=== PATIENT | female | born 1955 | race Caucasian/White ===

== ENCOUNTER 2020-09-22 10:32 | Outpatient (REF) | payer MEDICARE, MEDICAID, OTHER, SELFPAY ==
--- NOTE | ~2020-09-22 | MM_ITS ---
EXAMINATION: MM SCREENING DIGITAL BREAST TOMOSYNTHESIS, BILATERAL CLINICAL INFORMATION: Screening. Asymptomatic. The lifetime risk of breast cancer based on the Tyrer-Cuzick Model is 5%. COMPARISON: Mammography: 01/30/2018 09/23/2016, 09/06/2013 TECHNIQUE: Digital breast tomosynthesis is performed in both the craniocaudal and mediolateral oblique views along with computer-aided detection (CAD). Synthesized 2D images are generated from the tomosynthesis. FINDINGS: The breasts are almost entirely fatty (ACR BI-RADS breast composition Category a). There are no significant masses, abnormal calcifications, or other abnormalities. Background stromal densities are stable. The axilla and skin contours are unremarkable. MM/MM tomosynthesis screening BI IMPRESSION: No mammographic evidence of malignancy. ASSESSMENT: BI-RADS 1: Negative RECOMMENDATION: Routine annual mammography screening. This patient's information was entered into a reminder system with a target due date for their next mammogram.
== END 2020-09-22 10:33 | disposition home or self-care (01) ==
LOC: HO.MAMMO 10:32
PROVIDERS: PCP Internal Medicine; Visit Provider Internal Medicine
DX: Z12.31 Encounter for screening mammogram for malignant neoplasm of breast (principal)
CPT/HCPCS: 77063; 77067

== ENCOUNTER → 2020-12-04 10:45 | Outpatient (BNVA) | payer MEDICARE, MEDICAID, OTHER, SELFPAY | PROVIDERS: PCP Internal Medicine; Visit Provider Internal Medicine | DX: J44.9 Chronic obstructive pulmonary disease, unspecified (principal); G47.30 Sleep apnea, unspecified; J30.9 Allergic rhinitis, unspecified; F17.200 Nicotine dependence, unspecified, uncomplicated | CPT/HCPCS: 99212 ==

== ENCOUNTER → 2020-12-25 09:25 | Outpatient (REF) | payer MEDICARE, MEDICAID, OTHER, SELFPAY | LOC: HO.SL 09:25 | PROVIDERS: Visit Provider Internal Medicine | DX: G47.33 Obstructive sleep apnea (adult) (pediatric) (principal); R06.83 Snoring | CPT/HCPCS: 95806 ==

== ENCOUNTER → 2021-08-04 13:03 | Outpatient (BNVA) | payer MEDICARE, MEDICAID, SELFPAY | PROVIDERS: PCP Internal Medicine; Visit Provider Internal Medicine | DX: G47.33 Obstructive sleep apnea (adult) (pediatric) (principal); J44.9 Chronic obstructive pulmonary disease, unspecified; J30.9 Allergic rhinitis, unspecified; G47.30 Sleep apnea, unspecified; F17.210 Nicotine dependence, cigarettes, uncomplicated | CPT/HCPCS: 99212 ==

== ENCOUNTER → 2021-09-16 16:08 | Outpatient (BNVA) | payer MEDICARE, MEDICAID, SELFPAY | PROVIDERS: PCP Internal Medicine; Visit Provider Internal Medicine | DX: J30.9 Allergic rhinitis, unspecified (principal); J44.9 Chronic obstructive pulmonary disease, unspecified; G47.33 Obstructive sleep apnea (adult) (pediatric); G47.34 Idiopathic sleep related nonobstructive alveolar hypoventilation; F17.200 Nicotine dependence, unspecified, uncomplicated | CPT/HCPCS: 99212 ==

== ENCOUNTER 2021-12-17 09:35 | Outpatient (REF) | payer MEDICARE, MEDICAID, SELFPAY ==
--- NOTE | ~2021-12-17 | MM_ITS ---
EXAMINATION: MM SCREENING DIGITAL BREAST TOMOSYNTHESIS, BILATERAL CLINICAL INFORMATION: Screening. Asymptomatic. The lifetime risk of breast cancer based on the Tyrer-Cuzick Model is 4%. COMPARISON: Mammography: 09/22/2020, 01/30/2018, 09/23/2016 TECHNIQUE: Digital breast tomosynthesis is performed in both the craniocaudal and mediolateral oblique views along with computer-aided detection (CAD). Synthesized 2D images are generated from the tomosynthesis. FINDINGS: The breasts are almost entirely fatty (ACR BI-RADS breast composition Category a). Background stromal markings appearing normal. No developing density or architectural abnormality. There are no significant masses, abnormal calcifications, or other abnormalities. The axilla and skin contours are unremarkable. No significant changes. MM/MM tomosynthesis screening BI IMPRESSION: No mammographic evidence of malignancy. ASSESSMENT: BI-RADS 1: Negative RECOMMENDATION: Routine annual mammography screening. This patient's information was entered into a reminder system with a target due date for their next mammogram.
== END 2021-12-17 09:36 | disposition home or self-care (01) ==
LOC: HO.MAMMO 09:35
PROVIDERS: Visit Provider Internal Medicine
DX: Z12.31 Encounter for screening mammogram for malignant neoplasm of breast (principal)
CPT/HCPCS: 77063; 77067

== ENCOUNTER 2022-06-25 10:49 | Outpatient (REF) | payer MEDICARE, MEDICAID, SELFPAY ==
[2022-06-25 14:01] LABS: Alanine Aminotransferase 42 U/L (0-31); Albumin Level 4.2 g/dL (3.5-5.0); Alkaline Phosphatase 80 U/L (39-117); Aspartate Amino Transferase 20 U/L (5-31); Bilirubin Direct 0.1 mg/dL (0.0-0.5); Bilirubin Total 0.5 mg/dL (0.0-1.0); Cholesterol 238 mg/dL; HDL Cholesterol 55 mg/dL; LDL Cholesterol Calculated 161 mg/dl; Total Protein 6.7 g/dL (6.5-8.0); Triglycerides 112 mg/dL
[2022-06-25 14:07] LABS: Ferritin 20 ng/mL (10-250)
[2022-06-28 08:41] LABS: HBS Num1 0.14 mIU/mL (0-7.99); HBc Num1 0.09 S/CO (0.00-0.79); HBsAGNum1 0.36 S/CO (0.00-0.99); Hepatitis A Antibody IgM 0.17 Index (0-0.79); Hepatitis B Core Antibody Nonreactive (Nonreactive); Hepatitis B Surface Antigen Negative (Negative); ~Hepatitis A Antibody IgM Nonreactive (Nonreactive); ~Hepatitis B Surface Antibody NONREACTIVE (Nonreactive); ~Hepatitis C Antibody Nonreactive (Nonreactive)
[2022-06-28 12:43] LABS: Ceruloplasmin 30 mg/dL (18-53)
[2022-07-01 13:23] LABS: Anti Nuclear Antibody Screen NEGATIVE (NEGATIVE)
== END 2022-06-25 10:50 | disposition home or self-care (01) ==
LOC: HO.LAB 10:49
PROVIDERS: PCP Internal Medicine; Visit Provider Internal Medicine
DX: R79.89 Other specified abnormal findings of blood chemistry (principal)
CPT/HCPCS: 36415; 80061; 80076; 82390; 82728; 86038; 86039; 86704; 86706; 86709; 86803; 87340

== ENCOUNTER → 2022-07-28 10:37 | Outpatient (BNVA) | payer MEDICARE, MEDICAID, SELFPAY | PROVIDERS: PCP Internal Medicine; Visit Provider Internal Medicine | DX: J44.9 Chronic obstructive pulmonary disease, unspecified (principal); G47.33 Obstructive sleep apnea (adult) (pediatric); G47.34 Idiopathic sleep related nonobstructive alveolar hypoventilation; M79.7 Fibromyalgia; F17.210 Nicotine dependence, cigarettes, uncomplicated; Z99.81 Dependence on supplemental oxygen | CPT/HCPCS: 99212 ==

== ENCOUNTER 2022-08-20 09:53 | Outpatient (REF) | payer MEDICARE, MEDICAID, SELFPAY ==
--- NOTE | ~2022-08-20 | XR_ITS ---
EXAMINATION: XR FOOT, RIGHT CLINICAL INFORMATION: Right 5th toe pain. COMPARISON: 01/08/2014. TECHNIQUE: AP, lateral, and oblique views of the right foot. FINDINGS: There is no evidence of acute fracture or dislocation of the right foot. There is soft tissue edema seen about the 5th metatarsophalangeal joint and 5th tarsometatarsal joint. No bony erosions or foreign bodies are identified. There is a plantar calcaneal spur. There is some dorsal spurring at the talonavicular joint. There is dorsal spurring about the 1st cuneiform metatarsal joint. XR/XR foot RT min 3V IMPRESSION: 1. Findings consistent with bunionette formation right 5th metatarsophalangeal joint with soft tissue edema. No radiopaque foreign body or gas within the soft tissues identified. 2. Plantar calcaneal spur. 3. Mild midfoot degenerative change as described.
== END 2022-08-20 09:54 | disposition home or self-care (01) ==
LOC: HO.XRAY 09:53
PROVIDERS: Visit Provider Internal Medicine
DX: M79.674 Pain in right toe(s) (principal)
CPT/HCPCS: 73630

== ENCOUNTER 2023-04-25 09:32 | Outpatient (REF) | payer MEDICARE, SELFPAY | END 2023-04-25 09:33 | disposition home or self-care (01) | LOC: HO.MAMMO 09:32 | PROVIDERS: PCP Internal Medicine; Visit Provider Internal Medicine | DX: Z12.31 Encounter for screening mammogram for malignant neoplasm of breast (principal) | CPT/HCPCS: 77063; 77067 ==

== ENCOUNTER → 2023-04-25 09:45 | Outpatient (BNV) | payer MEDICARE, SELFPAY | PROVIDERS: PCP Internal Medicine; Visit Provider Radiology Diagnostic Radiology | DX: Z12.31 Encounter for screening mammogram for malignant neoplasm of breast (principal) | CPT/HCPCS: 77063; 77067 ==

== ENCOUNTER 2023-07-25 10:09 | Outpatient (AMB) | payer MEDICARE, SELFPAY ==
[2023-07-25 10:32] VITALS: BP 122/72; PULSE 95; O2SAT 104; BMI 25.5
--- NOTE | 2023-07-25 10:32 | A.OFFVIS_ITS ---
Vital Signs 07/25/23 10:32 Height 5 ft 8 in Weight 167 lb 8.821 oz BMI 25.5 BP 122/72 Blood Pressure Location Lt brachial Position Sitting Pulse 95 Pulse Source Pulse Oximeter Pulse Oximetry (%) 104 H Oxygen Delivery Method Room Air Intake Visit Reasons: COPD Intake Note: pt is here for follow up and using oxygen at night, she is in a lot of pain today, it is not a good day. Data Processing Control Clerk Required: No Allergies SEASONAL ALLERGIES Allergy (Unknown, Uncoded 07/25/23 10:57) UNKNOWN Medication List - Last Reconciled 07/25/23 by Rony Barnett MD albuterol sulfate 90 mcg/actuation 2 puffs inhalation Q6H PRN cholecalciferol (vitamin D3) 25 mcg PO DAILY fluticasone furoate 200 mcg/actuation (Arnuity Ellipta) 1 inh inhalation DAILY fluticasone propionate 50 mcg/actuation (Flonase Allergy Relief) 1 spray intranasal DAILY folic acid 0.4 mg PO DAILY ketamine 10 mg intranasal Q2M PRN lidocaine 3% 1 appl topical TID PRN loratadine 10 mg PO DAILY lorazepam 0.5 mg PO TID PRN mecobalamin (vitamin B12) mcg PO omeprazole 20 mg PO DAILY tramadol 50 mg PO Q8H PRN valsartan 320 mg PO DAILY Do you need a note to return to daycare/school/sports/work: No HPI HPI COPD: Details: THIS 67 YEARS OLD FEMALE OF A THIN BUILD, LONG-TIME SMOKER, CHRONIC OBSTRUCTIVE PULMONARY DISEASE, AND NOCTURNAL HYPOXEMIA, COMES FOR FOLLOW-UP AFTER 1 YEAR. SHE USES O2 2 L/MINUTE AT NIGHT AND SLEEPS WELL. SHE DENIES DAYTIME SLEEPINESS. HER MAIN PROBLEM IS ONGOING SEVERE BACK AND MUSCLE PAINS. SHE CONTINUES TO SMOKE 1 PACK. OF CIGARETTES A DAY SHE HAS ONLY MINIMAL COUGH OR WHEEZING. DENIES ANY SHORTNESS OF BREATH ON WALKING BECAUSE HER WALKING IS SLOW ANYWAY. PFSH Medical History Nocturnal hypoxemia Obstructive sleep apnea syndrome Allergic rhinitis Sleep apnea COPD (chronic obstructive pulmonary disease) Smoking Social History Patient Tobacco Use Status: Current everyday Tobacco user Cigarette Packs Per Day: 1 Cigarettes Per Day: 20 Review of Systems Const All systems reviewed & are unremarkable except as noted in HPI and below Eyes Reports no additional complaints ENT Reports nasal congestion (Off and on) Card Denies chest pain, Denies irregular heart rhythm and Denies leg edema Resp Reports as per HPI GI Reports heartburn (Controlled with Nexium) Reports no additional complaints Musc Reports abnormal gait (Due to pain in the right knee, she has to use a walker), Reports back pain (Mild) and Reports arthralgias (Chronic in the right knee and thigh) Skin/Breast Reports system reviewed and no additional complaints, except as documented Neuro Reports abnormal gait (Due to pain in the right knee, she has to use a walker) Psych Reports no additional complaints Physical Exam Vital Signs: Last Vital Signs Pulse 95 07/25/23 10:32 BP 122/72 07/25/23 10:32 Pulse Ox 104 H 07/25/23 10:32 Oxygen Delivery Method Room Air 07/25/23 10:32 BMI result Body Mass Index 25.5 Const General: comfortable, no acute distress, alert and awake Orientation/consciousness: patient oriented x3 HEENT Head: Yes normal to inspection General nose exam: No nasal polyps present and No nasal discharge present Face and sinus: Yes sinuses nontender Mouth: oropharynx normal (Normal, Mallampati class 2) Throat: Yes posterior oropharynx normal Eyes General: appearance normal, both eyes and all related structures Neck Neck: Yes normal visual inspection, Yes no lymphadenopathy, Yes trachea midline, Yes no JVD and Yes other (Neck circumference 14 in) Thyroid: Thyroid normal Chest Chest palpation & inspection: normal inspection of the chest, normal palpation of entire chest wall and no tenderness Resp Other: Percussion note hyper-resonant, breath sounds are equal on both sides, slightly distant. No wheezes or rhonchi are heard Cardio Palpation: normal PMI Rate: regular rate Rhythm: regular rhythm Heart sounds: no gallops and no murmurs GI Palpation (GI): Soft to palpation, nontender, No hepatosplenomegaly present and no masses Auscultation: normal bowel sounds Back/Spine/Pelvis Thoracic/Lumbar Spine: thoracic and lumbar spine normal to inspection Skin General skin exam: no rashes or lesions noted Neuro General: patient oriented x3 and no focal motor deficits Cranial nerves: Yes CN's II-XII intact bilaterally Extrem General: Yes normal to inspection, Yes no clubbing, cyanosis or edema, Yes no calf tenderness and No normal gait (Walks with walker) Right lower extremity: knee (Right knee is painful and stiff) Psych Appearance: grossly normal and well kempt Speech and movement: Normal speech and movement present Assessment & Plan Assessment & Plan (1) COPD (chronic obstructive pulmonary disease): Comment: She does have mild to moderate degree of COPD. Has remained relatively stable. LUCKILY SHE HAS HAD NO ACUTE INFECTION OR ACUTE EXACERBATION. Code(s): J44.9 - Chronic obstructive pulmonary disease, unspecified Category: Medical Plan: ARNUITY- 200 MCG 1 INHALATION DAILY. ALBUTEROL HFA 2 PUFFS Q 4-6 HOURS P.R.N.. (2) Allergic rhinitis: Comment: It is mostly seasonal and mild. Code(s): J30.9 - Allergic rhinitis, unspecified Category: Medical Plan: tx :Advised to continue Flonase 2 spray each nostril daily on p.r.n. basis (3) Nocturnal hypoxemia: Comment: OVERNIGHT OXIMETRY RECORDING SHOWED HER O2 SAT BELOW 88% FOR 28 MINUTES. THIS MAY BE DUE TO COMBINATION OF SLEEP APNEA, AND ALSO COPD. SINCE SHE IS ON O2 2 L/MINUTE AT NIGHT SHE HAS BEEN FEELING MUCH BETTER. Code(s): G47.34 - Idiopathic sleep related nonobstructive alveolar hypoventilation Category: Medical Plan: CONTINUE USING O2 2 L/MINUTE EVERY NIGHT (4) Obstructive sleep apnea syndrome: Comment: PATIENT HAD MILD TO MODERATE DEGREE OF OBSTRUCTIVE SLEEP APNEA. SHE WAS NOT ABLE TO USE THE CPAP. SHE HAS BEEN USING IT REGULARLY AND, HAS HAD WONDERFUL POSITIVE EFFECT ON HER SLEEP. Code(s): G47.33 - Obstructive sleep apnea (adult) (pediatric) Category: Medical Plan: ADVISED TO CONTINUE USING O2 2 L/MINUTE EVERY NIGHT (5) Smoking: Comment: SHE CONTINUES TO SMOKE 1 PACK. OF CIGARETTES A DAY SHE SAY IS OPENLY THAT SHE IS NOT ABLE TO QUIT OR EVEN CUT DOWN ON SMOKING. Code(s): F17.200 - Nicotine dependence, unspecified, uncomplicated Category: Social Hx Plan: I OFFERED HER TO JOIN THE ANNUAL LUNG SCREENING PROGRAM AND SHE DECLINED. Coding Level of Care Code Est Pt Level 3 (30431) Diagnoses COPD (chronic obstructive pulmonary disease) J44.9 Allergic rhinitis J30.9 Nocturnal hypoxemia G47.34 Obstructive sleep apnea syndrome G47.33 Smoking F17.200
== END 2023-07-25 10:55 | disposition home or self-care (01) ==
PROVIDERS: PCP Internal Medicine; Visit Provider Internal Medicine
DX: J44.9 Chronic obstructive pulmonary disease, unspecified (principal); J30.9 Allergic rhinitis, unspecified; G47.34 Idiopathic sleep related nonobstructive alveolar hypoventilation; G47.33 Obstructive sleep apnea (adult) (pediatric); F17.200 Nicotine dependence, unspecified, uncomplicated
CPT/HCPCS: 99213

== ENCOUNTER → 2023-07-25 10:09 | Outpatient (BNVA) | payer MEDICARE, SELFPAY | PROVIDERS: PCP Internal Medicine; Visit Provider Internal Medicine | DX: J44.9 Chronic obstructive pulmonary disease, unspecified (principal); J30.9 Allergic rhinitis, unspecified; G47.33 Obstructive sleep apnea (adult) (pediatric); G47.34 Idiopathic sleep related nonobstructive alveolar hypoventilation; F17.210 Nicotine dependence, cigarettes, uncomplicated | CPT/HCPCS: 99212 ==

== ENCOUNTER 2024-11-22 13:32 | Outpatient (AMB) | payer MEDICARE, SELFPAY ==
--- OUTSIDE RECORDS SUMMARY | 2024-11-21 10:00 | XMS_ITS | Encounter Summary ---
Author Organization [employer] Address [address] [place] [address] [address] [place] [address] Care Team Providers Care Ios Software Engineer Name Role Phone Unavailable Primary Care Provider Unavailabl e Reason for Visit * Reason Comments Routine Cleaning Encounter Details Date Type Department Care Team (Late st Contact Info) Description 11/21/2024 10:00 AM EDT Office Visit [facility] [address] [place] [address] [phone] Osiris Espino [address] [place], [place] [phone] Social History Tobacco Use Types Packs/Day Years Used Date Smoking Tobacco: Every Day Cigarettes Smokeless Tobacco: Never Alcohol Use Standard Drinks/Week Comments Never 0 (1 standard drink = 0.6 oz pur e alcohol) Comments Unknown Sex and Gender Information Value Date Recorded Sex Assigned at Female 01/11/2022 10:19 AM EDT Legal Sex Female 10:19 AM EDT Gender Identity Choose not to disclose 10:19 AM EDT Sexual Orientation Choose not to disclose 2021 10:19 AM EDT documented as of this encounter Last Filed Vital Signs Vital Sign Reading Time Taken Comments Blood Pressure 136/74 11/21/2024 10:10 AM EDT Pulse 70 11/21/2024 10:10 AM EDT Temperature - - Respiratory Rate - - Oxygen Saturation - - Inhaled Oxygen Concentration - - Weight - - Height - - Body Mass Index - - documented in this encounter Progress Notes * Osiris Espino - 11/21/2024 10:00 AM EDT Patient ID: Krupa Basurto is a 68 y.o. adult. Time Out: Date: 11/21/2024 Location: [facility] Tooth: all Procedure: X-rays and Prophylaxis Verified the above with patient, food and nutrition services assistant, and provider. Confirmed via patient's chart, intraorally and by radiographs. Wallpaper Hanger Helper: not applicable Treatment Provided Dental procedures in this visit D1110 - PROPHYLAXIS - ADULT (Completed) Service provider: Osiris Espino Billing provider: Karyn Hernandez BDS [id number] - BITEWINGS - 4 RADIOGRAPHIC IMAGES (Completed) Service provider: Osiris Espino Billing provider: Karyn Hernandez BDS Instruments Used: Ultrasonic Scalers, Hand Scalers, and Prophy angle Calculus: Moderate Plaque: Light Stain: Moderate Bleeding: Moderate Gingiva: Perio Charting Completed and Recession- localized OH: Fair OCS: neg findings HNE: neg findings Oral hygiene instructions provided to patient including brushing technique and flossing. Recommendations: Floss daily, waterpik Recall Frequency: 6 mo NV: SRPs upon approval Hygienist: Osiris Espino RDH Patient presents with periodontal disease. Calculus present Subgingivally that can be seen radiographically. BOP: Localized Exudate: Not Present Mobility: none Generalized Probing Depths Range: 4 to 6 mm Recession: Localized ranging from 2 to 4 mm. Gingiva: Inflamed and edematous Bone loss visible radiographically: Generalized Pre Authorization requested for SRP. SRP treatment needed to promote gingival health, arrest disease progression of periodontal disease and prevent tooth loss. Provider: Osiris Espino Cosigned by Karyn Hernandez BDS at 11/21/2024 4:57 PM EDT documented in this encounter Plan of Treatment Upcoming Encounters Date Type Department Care Team (Late st Contact Info) Description 05/22/2025 10:00 AM EDT Office Visit [facility] [address] [place] [phone] Osiris Espino [address] [place] [id number] Scheduled Orders Name Type Priority Associated Diagnoses Orde r Schedule PROPHYLAXIS - ADULT Dental Routine 1 Occ urrences starting 11/21/2024 UL UL PERIODONTAL SCALING AND ROOT PLANING - 1 TO 3 TEETH PER QUADRANT Dental Routine [address] arting 11/21/2024 LL LL PERIODONTAL SCALING AND ROOT PLANING - 1 TO 3 TEETH PER QUADRANT Dental Routine [address] arting 11/21/2024 UR UR PERIODONTAL SCALING AND ROOT PLANING - 1 TO 3 TEETH PER QUADRANT Dental Routine [address] arting 11/21/2024 LR LR PERIODONTAL SCALING AND ROOT PLANING - 1 TO 3 TEETH PER QUADRANT Dental Routine [address] arting 11/21/2024 documented as of this encounter Procedures Procedure Name Priority Date/Time Associated Diagnosis Comments PROPHYLAXIS - ADULT Routine 11/21/2024 1 0:00 AM EDT BITEWINGS - 4 RADIOGRAPHIC IMAGES Routine 11/21/2024 10:00 AM EDT documented in this encounter Visit Diagnoses Not on filedocumented in this encounter
[2024-11-22 13:35] VITALS: BP 140/72; PULSE 65; O2SAT 97; BMI 27.5
--- NOTE | 2024-11-22 13:35 | A.OFFVIS_ITS ---
Vital Signs 11/22/24 13:35 Height 5 ft 8 in Weight 181 lb BMI 27.5 BP 140/72 H Blood Pressure Location Rt brachial Position Sitting Pulse 65 Pulse Source Pulse Oximeter Pulse Oximetry (%) 97 Oxygen Delivery Method Room Air Intake Visit Reasons: COPD Intake Note: Patient is here for a follow up on COPD Allergies SEASONAL ALLERGIES Allergy (Unknown, Uncoded 11/22/24 13:55) UNKNOWN Medication List - Last Reconciled 11/22/24 by Rony Barnett MD albuterol sulfate 90 mcg/actuation 2 puffs inhalation Q6H PRN aspirin 81 mg PO DAILY cholecalciferol (vitamin D3) 25 mcg PO DAILY fluticasone furoate 200 mcg/actuation (Arnuity Ellipta) 1 inh inhalation DAILY fluticasone propionate 50 mcg/actuation (Flonase Allergy Relief) 1 spray intranasal DAILY folic acid 0.4 mg PO DAILY ketamine 10 mg intranasal Q2M PRN lidocaine 3% 1 appl topical TID PRN loratadine 10 mg PO DAILY lorazepam 0.5 mg PO TID PRN mecobalamin (vitamin B12) mcg PO metoprolol succinate ER 50 mg PO DAILY omeprazole 20 mg PO DAILY tramadol 50 mg PO Q8H PRN valsartan 320 mg PO DAILY Do you need a note to return to daycare/school/sports/work: No HPI HPI COPD: Details: Krupa is 68 years old female. Along with many comorbidities she does have chronic obstructive pulmonary disease, and nocturnal hypoxemia. Her condition. is relatively controlled and steam She bought her own O2 concentrator and uses it at night with oxygen 2 L/minute. Denies cough or wheezing. She states that a few months ago she did have COVID infection but was able to recover from it right at home. She has put on some weight and feels somewhat tired. She is being monitored for hypothyroidism, and would need to see her primary care physician. PFSH Medical History Nocturnal hypoxemia Obstructive sleep apnea syndrome Allergic rhinitis Sleep apnea COPD (chronic obstructive pulmonary disease) Smoking Social History Patient Tobacco Use Status: Current everyday Tobacco user Cigarette Packs Per Day: 1 Cigarettes Per Day: 20 Review of Systems Const All systems reviewed & are unremarkable except as noted in HPI and below Eyes Reports no additional complaints ENT Reports nasal congestion (Off and on) Card Denies chest pain, Denies irregular heart rhythm and Denies leg edema Resp Reports as per HPI GI Reports heartburn (Controlled with Nexium) Reports no additional complaints Musc Reports abnormal gait (Due to pain in the right knee, she has to use a walker), Reports back pain (Mild) and Reports arthralgias (Chronic in the right knee and thigh) Skin/Breast Reports system reviewed and no additional complaints, except as documented Neuro Reports abnormal gait (Due to pain in the right knee, she has to use a walker) Psych Reports no additional complaints Physical Exam Vital Signs: Last Vital Signs Pulse 65 11/22/24 13:35 BP 140/72 H 11/22/24 13:35 Pulse Ox 97 11/22/24 13:35 Oxygen Delivery Method Room Air 11/22/24 13:35 BMI result Body Mass Index 27.5 Const General: comfortable, no acute distress, alert and awake Orientation/consciousness: patient oriented x3 HEENT Head: Yes normal to inspection General nose exam: No nasal polyps present and No nasal discharge present Face and sinus: Yes sinuses nontender Mouth: oropharynx normal (Normal, Mallampati class 2) Throat: Yes posterior oropharynx normal Eyes General: appearance normal, both eyes and all related structures Neck Neck: Yes normal visual inspection, Yes no lymphadenopathy, Yes trachea midline, Yes no JVD and Yes other (Neck circumference 14 in) Thyroid: Thyroid normal Chest Chest palpation & inspection: normal inspection of the chest, normal palpation of entire chest wall and no tenderness Resp Other: Percussion note hyper-resonant, breath sounds are equal on both sides, slightly distant. No wheezes or rhonchi are heard Cardio Palpation: normal PMI Rate: regular rate Rhythm: regular rhythm Heart sounds: no gallops and no murmurs GI Palpation (GI): Soft to palpation, nontender, No hepatosplenomegaly present and no masses Auscultation: normal bowel sounds Back/Spine/Pelvis Thoracic/Lumbar Spine: thoracic and lumbar spine normal to inspection Skin General skin exam: no rashes or lesions noted Neuro General: patient oriented x3 and no focal motor deficits Cranial nerves: Yes CN's II-XII intact bilaterally Extrem General: Yes normal to inspection, Yes no clubbing, cyanosis or edema, Yes no c nursing home tenderness and No normal gait (Walks with walker) Right lower extremity: knee (Right knee is painful and stiff) Psych Appearance: grossly normal and well kempt Speech and movement: Normal speech and movement present Assessment & Plan Assessment & Plan (1) Smoking: Comment: SHE CONTINUES TO SMOKE 1 PACK OF CIGARETTES A DAY SHE SAYs OPENLY THAT SHE IS NOT ABLE TO QUIT OR EVEN CUT DOWN ON SMOKING. Code(s): F17.200 - Nicotine dependence, unspecified, uncomplicated Category: Social Hx Plan: Talked about smoking again but she reiterates that she is not able to quit (2) COPD (chronic obstructive pulmonary disease): Comment: She does have mild to moderate degree of COPD. Has remained relatively stable. Luckily she has had no acute respiratory infection , even when she had the COVID . Symptoms And breathing status remains stabe. Code(s): J44.9 - Chronic obstructive pulmonary disease, unspecified Category: Medical Plan: Continue to use Arnuity he Ellipta 200 1 inhalation daily, and albuterol HFA 2 puffs Q 4-6 hours p.r.n. (3) Obstructive sleep apnea syndrome: Comment: PATIENT HAD MILD TO MODERATE DEGREE OF OBSTRUCTIVE SLEEP APNEA. SHE WAS NOT ABLE TO USE THE CPAP. She uses O2 2 L/minute , and it helps her to sleep Code(s): G47.33 - Obstructive sleep apnea (adult) (pediatric) Category: Medical Plan: OK to use O2 2 L/minute (4) Nocturnal hypoxemia: Comment: OVERNIGHT OXIMETRY RECORDING SHOWED HER O2 SAT BELOW 88% FOR 28 MINUTES. THIS MAY BE DUE TO COMBINATION OF SLEEP APNEA, AND ALSO COPD. SINCE SHE IS ON O2 2 L/MINUTE AT NIGHT SHE HAS BEEN FEELING MUCH BETTER. Code(s): G47.34 - Idiopathic sleep related nonobstructive alveolar hypoventilation Category: Medical Plan: Continue to use O2 2 L/minute Coding Level of Care Code Est Pt Level 3 (84793) Diagnoses Smoking F17.200 COPD (chronic obstructive pulmonary disease) J44.9 Obstructive sleep apnea syndrome G47.33 Nocturnal hypoxemia G47.34
--- OUTSIDE RECORDS SUMMARY | 2024-11-22 17:26 | XMS_ITS | Clinical Summary ---
Author Organization [employer] Address [address] [place] [address] 7[address] [place] [address] Care Team Providers Care Prevention Coordinator Name Role Phone Unavailable Primary Care Provider Unavailabl e Allergies No known active allergies Medications albuterol (2.5 MG/3ML) 0.083% nebulizer solution albuterol sulfate 2.5 mg/3 mL (0.083 %) solution for nebulization INHALE 1 VIAL ( 3ML) VIA NEBULZIER EVERY 6 HOURS Active albuterol 108 (90 Base) MCG/ACT inhaler TAKE 2 PUFF(S) INHALED 4 TIMES A DAY 3 Active cholecalciferol (Vitamin D3) 25 MCG (1000 UT) tablet TAKE 1 TABLET BY MOUTH EVERY DAY FOR 90 DAYS 2 Active cyclobenzaprine (Flexeril) 5 MG tablet TAKE 1 TO 2 TABLETS BY MOUTH TWICE DAILY NEEDED 2 Active fluticasone (Flovent HFA) 220 MCG/ACT inhaler Flovent HFA 220 mcg/actuation aerosol inhaler INHALE 2 PUFFS BY MOUTH TWICE DAILY Active Folic Acid 20 MG capsule Active Ketamine HCl [address] under the tongue. Active lidocaine-prilo ralph (Emla) 2.5-2.5 % cream lidocaine-priloc sandra 2.5 %-2.5 % topical cream APPLY 1 APPLICATION TOPICALLY TO AFFECTED AREA(S) 2-3X PER DAY 0 Active loratadine (Claritin) 10 MG tablet Take 10 mg by mouth in the morning. 2 Active LORazepam (Ativan) 0.5 MG tablet lorazepam 0.5 mg tablet TAKE 1 TABLET BY MOUTH TWICE A DAY NEEDED 0 Active magnesium gluconate 550 MG tablet Active Methylcobalamin 1 MG chewable tablet Active omeprazole (PriLOSEC) [address] capsule omeprazole 20 mg capsule,delayed release TAKE 1 CAPSULE BY MOUTH EVERY DAY Active traMADol (Ultram) 50 MG tablet Take 50 mg by mouth 3 times daily. 3 Active valsartan (Diovan) 320 MG tablet Take 320 mg by mouth in the morning. 2 Active aspirin 81 MG EC tablet Take 81 mg by mouth Once per day. 4 Active fexofenadine (Medina) 180 MG tablet Take 180 mg by mouth Once per day. 4 Active metoprolol succinate XL (Toprol-XL) 25 MG 24 hr tablet Take 25 mg by mouth Once per day. 4 Active cyanocobalamin (Vitamin B-12) 1000 MCG tablet Take 1,000 mcg by mouth Once per day. Active Lipitor 20 MG tablet Take 20 mg by mouth Once per day. 4 Active Active Problems Problem Noted Date Diagnosed Date Chronic obstructive pulmonary disease (COPD) 12/2023 Asthma 02/21/2024 Leg pain, right 02/21/2024 Pain in limb 02/21/2024 Small bowel motility disorder 02/21/2024 Hypertrophic cardiomyopathy 02/21/2024 Palpitations 02/21/2024 Tachycardia 02/21/2024 CRPS (complex regional pain syndrome type I) 11/2023 Peripheral vascular disease 06/21/2023 Resolved Problems Problem Noted Date Diagnosed Date Resolved Date Cigarette nicotine dependence 06/21/2023 02/21/2024 Encounters Date Type Department Care Team Description 11/21/2024 10:00 AM EDT Office Visit [facility] [address] [place] [phone] Osiris Espino from Last 3 Months Social History Tobacco Use Types Packs/Day Years Used Date Smoking Tobacco: Every Day Cigarettes Smokeless Tobacco: Never Tobacco Cessation:Ready to Q uit: Not Asked; Counseling Given: Not Answered Alcohol Use Standard Drinks/Week Comments Never 0 (1 standard drink = 0.6 oz pur e alcohol) Comments Unknown Sex and Gender Information Value Date Recorded Sex Assigned at Female 01/11/2022 10:19 AM EDT Legal Sex Female 10:19 AM EDT Gender Identity Choose not to disclose 10:19 AM EDT Sexual Orientation Choose not to disclose 2021 10:19 AM EDT Last Filed Vital Signs Vital Sign Reading Time Taken Comments Blood Pressure 136/74 11/21/2024 10:10 AM EDT Pulse 70 11/21/2024 10:10 AM EDT Temperature - - Respiratory Rate - - Oxygen Saturation - - Inhaled Oxygen Concentration - - Weight - - Height - - Body Mass Index - - Plan of Treatment Upcoming Encounters Date Type Department Care Team (Late st Contact Info) Description 05/22/2025 10:00 AM EDT Office Visit [facility] [address] [place] [address] Osiris Espino [address] [place] [address] Health Maintenance Due Date Last Done Comments CT Colonography 1956 Colonoscopy 1956 Dental X-Ray: Full Mouth 1956 Depression Screening 1956 FIT 1956 Lipid Panel 1956 SDOH Screening 1956 Sigmoidoscopy 1956 Alcohol/Substance Use Screening 1968 Hepatitis C Screening 1974 DTaP/Tdap/Td Vaccines (1 - Tdap) 12/13/1975 Mammogram 1996 Zoster Vaccines (1 of 2) 2006 RSV Patients and Patients Aged 60 years or older (1 - Risk 60-74 years 1-dose series) 2016 Dental Oral Exam 01/26/2024 07/25/2023 COVID-19 Vaccine ( season) 2024 03/03/2023, 11/23/2021, 01/23/2021, Additional history exists Influenza Vaccine (#1) 2024 , 02/20/2023, 12/17/2021, Additional history exists Dental Prophylaxis 05/22/2025 11/21/2024, 0 07/25/2023, 10/05/2022, Additional history exists FOBT 10/08/2025 10/08/2024 Tobacco Screening 11/21/2025 11/21/2024 Dental X-Ray: Bitewings 11/22/2025 11/21/2024, 07/24 Colorectal Cancer Screening 10/09/2027 FIT DNA/Cologuard 10/09/2027 10/08/2024 Pneumococcal Vaccine: 50+ Years Completed 01/11/2024, 12/25/2011 HIB Vaccines Aged Out No longer eligi ble based on patient's age to complete this topic HPV Vaccines Aged Out No longer eligi ble based on patient's age to complete this topic Hepatitis A Vaccines Aged Out No long er eligible based on patient's age to complete this topic Hepatitis B Vaccines Aged Out No long er eligible based on patient's age to complete this topic IPV Vaccines Aged Out No longer eligi ble based on patient's age to complete this topic Meningococcal B Vaccine Aged Out No l onger eligible based on patient's age to complete this topic Meningococcal Vaccine Aged Out No bay michael eligible based on patient's age to complete this topic RSV under 20 months Aged Out No longe r eligible based on patient's age to complete this topic Rotavirus Vaccines Aged Out No longer eligible based on patient's age to complete this topic Procedures Procedure Name Priority Date/Time Associated Diagnosis Comments BITEWINGS - 4 RADIOGRAPHIC IMAGES Routine 11/21/2024 10:00 AM EDT PROPHYLAXIS - ADULT Routine 11/21/2024 1 0:00 AM EDT PERIODIC ORAL EVALUATION - ESTABLISHED PATIENT Routine 07/25/2023 8:00 AM EDT from Last 3 Months or Most Recently Relevant to Health Maintenance Insurance DENTAL - HSN FULL (MEDICAID) [place]
--- OUTSIDE RECORDS SUMMARY | 2024-11-22 17:26 | XMS_ITS | Encounter Summary ---
Author Organization [employer] Address [address] [place] [address] [address] [place] [address] Care Team Providers Care Lamp Assembler Name Role Phone Unavailable Primary Care Provider Unavailabl e Encounter Details Date Type Department Care Team (Latest Contact Info) Description 07/14/2021 Abstract [facility] CONVERSIONS Dental, Provider, DDS Social History Tobacco Use Types Packs/Day Years Used Date Smoking Tobacco: Never Assessed Comments Unknown Sex and Gender Information Value Date Recorded Sex Assigned at Female 01/11/2022 10:19 AM EDT Legal Sex Female 10:19 AM EDT Gender Identity Choose not to disclose 10:19 AM EDT Sexual Orientation Choose not to disclose 2021 10:19 AM EDT documented as of this encounter Plan of Treatment Upcoming Encounters Date Type Department Care Team (Late st Contact Info) Description 05/22/2025 10:00 AM EDT Office Visit [facility] [address] [place], [place] [phone] Osiris Espino [address] [place], [place] [phone] documented as of this encounter Visit Diagnoses Not on filedocumented in this encounter
--- OUTSIDE RECORDS SUMMARY | 2024-11-22 17:26 | XMS_ITS | Encounter Summary ---
Author Organization [employer] Address [address] [place] [address] [address], [place] [address] Care Team Providers Care Director Ship Name Role Phone Unavailable Primary Care Provider Unavailabl e Reason for Visit * Reason Onset Date Comments medication 09/27/2023 Encounter Details Date Type Department Care Team (Late st Contact Info) Description 09/27/2023 Telephone [facility] [address] [place] [phone] Karyn Hernandez BDS [address] [place] [address] [phone] medication Social History Tobacco Use Types Packs/Day Years Used Date Smoking Tobacco: Every Day Cigarettes Smokeless Tobacco: Never Comments Unknown Sex and Gender Information Value Date Recorded Sex Assigned at Female 01/11/2022 10:19 AM EDT Legal Sex Female 10:19 AM EDT Gender Identity Choose not to disclose 10:19 AM EDT Sexual Orientation Choose not to disclose 2021 10:19 AM EDT documented as of this encounter Miscellaneous Notes * Telephone Encounter - Juana Willams - 09/27/2023 8:56 AM EDT Message for Dr. Payen Patient states antibiotic was to be sent to pharmacy but nothing there. DR documented in this encounter Plan of Treatment Upcoming Encounters Date Type Department Care Team (Late st Contact Info) Description 05/22/2025 10:00 AM EDT Office Visit [facility] [address] [place] [phone] Osiris Espino [address] [place] [phone] documented as of this encounter Visit Diagnoses Not on filedocumented in this encounter
--- OUTSIDE RECORDS SUMMARY | 2024-11-22 17:26 | XMS_ITS ---
Author Name [facility] Organization Unknown History of Medication Use Medication Directions Dispensed Refills Start Date End Date Stat us Doxycycline 100mg Capsule 10/08/202208/2022 active Albuterol Sulfate HFA 90mcg/actuation Inhalation Aerosol 09/20/2022 active Biotin 53618tem Extra Strength Softgel 09/20/2022 active Cyclobenzaprine Hydrochloride 5mg Tablet 09/20/2022 active Folic Acid 1000mcg Tablet 09/20/2022 active Ketamine Hydrochloride 100mg/ml Solution for Injection 09/20/2022 active Lorazepam 0.5mg Tablet 09/20/2022 active Vitamin C 250mg Chewable Tablet (Fruit) 09/20/2022 active Vitamin D3 1000 IU Tablet 09/20/2022 active Allergies Allergen Reaction Severity Comment Documented Date Source Statu s .NO KNOWN DRUG ALLERGIES [facility] Problems Problem Status Onset Date Problem Type Date of Resolution Source Unspecified atherosclerosis of extremities, bilateral legs - PVD active 2022-09-20 ProblemAct [facility] Absent pedal pulses active 2022-09-20 ProblemAct [facility] Pain in right toe(s) active 2022-10-08 EncounterDiagnosis Act [facility] PVD of extremities with intermittent claudication, right leg active 2022-09-20 ProblemAct [facility] Ex-smoker active 2022-09-20 ProblemAct E[facility] RCT Ingrowing nail active 2022-10-08 EncounterDiagnosisAct E[facility]_POD[facility] CRPS Complex regional pain syndrome I of right lower limb active 2022-09-20 ProblemAct [facility] Encounters Encounter Type Encounter Reason Primary Diagnosis Location Date [facility] 20[facility] Care Team Organization Name Specialty Phone Email Start Date End [facility] 09/21/2022 [facility] Primary Care
--- OUTSIDE RECORDS SUMMARY | 2024-11-22 17:26 | XMS_ITS | Clinical Summary ---
Author Organization [facility] Address [address] [address] Phone Care Team Providers Care Instructor Dramatic Arts Name Role Phone Pcp, Unknown Primary Care Provider Jacques Pryor MD Unavailable [phone] Allergies No known active allergies Medications albuterol 90 mcg/actuation inhaler INHALE 2 PUFFS BY MOUTH 4 TIMES A DAY 0 Active VITAMIN D3 25 mcg (1,000 unit) capsule Take by mouth daily. 0 Active VITAMIN B-12 500 MCG tablet Take 500 mcg by mouth daily. 0 Active cyclobenzaprine (FLEXERIL) 5 MG tablet 1 TAB(S) TWICE A DAY NEEDED ORALLY 0 Active FLOVENT HFA 220 mcg/actuation inhaler INHALE 2 PUFFS TWICE A DAY 0 Active folic acid (FOLVITE) 400 MCG tablet Take 400 mcg by mouth daily. 0 Active lidocaine-prilo ralph (EMLA) cream APPLY TOPICALLY TO AFFECTED AREA 2 TO 3 TIMES DAILY 0 Active loratadine (CLARITIN) 10 mg tablet TAKE 1 TABLET BY MOUTH EVERY DAY NEEDED FOR ALLERGIES 0 Active omeprazole (PRILOSEC) 20 MG capsule Take 20 mg by mouth daily. 0 Active valsartan (DIOVAN) 320 MG tablet Take 320 mg by mouth daily. 0 Active Medication-Free Text cbd 1:1 medical marijuana Active ketamine HCl (KETAMINE IV) Inject 500 mg into the vein. Active ketamine [address] under the tongue. Active LORazepam (ATIVAN) 0.5 MG tablet Take 0.5 mg by mouth daily as needed. 0 Active fluticasone propionate (FLONASE) 50 mcg/actuation nasal spray SPRAY 1 SPRAY INTRANASALLY ONCE A DAY 2 Active traMADoL (ULTRAM) 50 mg tablet Take 50 mg by mouth 4 (four) times a day as needed. 2 Active Active Problems No known active problems Immunizations Immunization Administration Dates Next Due COVID-19 (Pre-01/03) Pfizer Vaccine, mRNA, PF INFLUENZA, SPLIT VIRUS, TRIVALENT PF 12/25/2011 Influenza Quadrivalent MDCK Preservative Free IM 12/17/2021 Influenza Quadrivalent Preservative Free IM 11/12 Pneumococcal polysaccharide PPSV23 12/25/2011 Social History Tobacco Use Types Packs/Day Years Used Date Smoking Tobacco: Every Day Smokeless Tobacco: Never Education Answer Date Recorded Are you interested in more education? Not on mohan e 07/08/2022 Are you concerned about learning? Not on file 07/08/2022 No 07/08/2022 No 07/08/2022 Digital Access Answer Date Recorded No 08/09/2022 No 08/09/2022 No 08/09/2022 Reliable internet access at home? Not on file 08/09/2022 Device with a working camera? Not on file Comments Unknown Sex and Gender Information Value Date Recorded Sex Assigned at Not on file Legal Sex Female 7:10 PM EST Gender Identity Not on file Sexual Orientation Not on file Last Filed Vital Signs Vital Sign Reading Time Taken Comments Blood Pressure 115/73 03/08/2022 3:35 PM EST Pulse 107 03/08/2022 3:35 PM EST Temperature 36.6 C (97.8 F) 03/08/2022 3:35 PM EST Respiratory Rate 20 03/08/2022 3:35 PM EST Oxygen Saturation 97% 03/08/2022 3:35 PM EST Inhaled Oxygen Concentration - - Weight 79.4 kg (175 lb) 03/08/2022 3:35 PM EST Height 170.2 cm (5' 7 ) 03/08/2022 3:35 PM EST Body Mass Index 27.41 03/08/2022 3:35 PM EST Plan of Treatment Health Maintenance Due Date Last Done Comments Adult Td,Tdap Booster 1955 LIPID PANEL 1956 DEPRESSION SCREENING 1968 SMOKING Hx and SMOKELESS TOBACCO SCREENING 1969 HEPATITIS C SCREENING 1974 MAMMOGRAM 1996 COLOGUARD 2001 COLONOSCOPY 2001 COLORECTAL CANCER SCREENING 2001 FIT TEST 2001 FOBT 2001 SIGMOIDOSCOPY 2001 VIRTUAL COLONOSCOPY 2001 ZOSTER VACCINES (1 of 2) 2006 PNEUMOCOCCAL VACCINES (50+ years) (2 of 2 - PCV) 12/24/2012 12/25/2011 CREATININE LEVEL 12/23/2020 12/24/2019 POTASSIUM LEVEL 12/23/2020 12/24/2019 OSTEOPOROSIS SCREENING INITIAL (ONE-TIME) 2021 SCREENING FOR DIABETES 12/23/2022 12/24/2019 INFLUENZA VACCINE (#1) 2024 2, 11/27/2020, 12/25/2011 COVID-19 VACCINE ( season) 2024 11/23/2021, 11/23/2021, 01/23/2021, Additional history exists RSV VACCINE (1 - 1-dose 75+ series) 12/13/2031 HEPATITIS A VACCINES Aged Out No long er eligible based on patient's age to complete this topic HIB VACCINES Aged Out No longer eligi ble based on patient's age to complete this topic MENINGOCOCCAL VACCINES (ACWY) Aged Out No longer eligible based on patient's age to complete this topic MENINGOCOCCAL VACCINES (B) Aged Out N o longer eligible based on patient's age to complete this topic Medical Devices Not on file Procedures Procedure Name Priority Date/Time Associated Diagnosis Comments COMPREHENSIVE METABOLIC PANEL Routine 12/24/2019 8:53 AM EDT Rash and other nonspecific skin eruption from Last 3 Months or Most Recently Relevant to Health Maintenance Results * (ABNORMAL) Comprehensive metabolic panel (12/24/2019 8:53 AM EDT) SODIUM 136 133 - 146 mmol/L [facility] POTASSIUM 4.3 3.3 - 5.1 mmol/L [facility] CHLORIDE 102 96 - 108 mmol/L [facility] CO2 22 21 - 35 mmol/L [facility] BUN 15 6 - 19 mg/dL [facility] CREATININE 1.00 0.5 - 1.5 mg/dL [facility] GLUCOSE 104(H) 70 - 99 mg/dL [facility] ALBUMIN 4.4 3.9 - 4.8 g/dL [facility] TOTAL PROTEIN 7.4 6.5 - 8.0 g/dL [facility] CALCIUM 9.7 8.4 - 10.3 mg/dL [facility] ALKALINE PHOSPHATASE 93 39 - 117 U/L [facility] TOTAL BILIRUBIN 0.4 0.0 - 1.2 mg/dL [facility] AST 20 0 - 37 U/L [facility] ALT 17 0 - 40 U/L [facility] GLOBULIN 3.0 1 - 4.8 g/dL [facility] EGFR 60 >59 mL/min/1.7 3m2 [facility] Comment:Estimated glomerular filtration rate calculated using the CKD-EPI equation. ANION GAP 16 10 - 20 mmol/L [facility] Blood 12/24/2019 8:53 AM EDT 12/24/2019 8:58 AM EDT Marlene Newman LOOM REPAIRER LAB BLOOD ORDERABLES Final Result Performing Organization Address City/State/[facility] Co de Phone Number [facility] [address] [place] [address] from Last 3 Months or Most Recently Relevant to Health Maintenance Insurance MEDICARE PART A & B MEDICARE PART A & B HEALTH MEDICARE PART A & B [place]ALTH MEDICARE PART A & [place] MED[place] A & B MEDICARE PART A & B MEDICARE PART A & B [facility] MEDICARE PART A & B [facility] MEDICARE PART A & B [facility] Care Teams Instructor Dramatic Arts Relationship Specialty Start Date End Date Pcp, Unknown PCP - General 03/08/22 Jacques Merritt MD [address] [place] [address] 03/08/22 Additional Source Comments The information contained in this document represents components of the legal health record. It is not the complete legal health record.[facility]
== END 2024-11-22 13:55 | disposition home or self-care (01) ==
LOC: HO.HPS 13:33
PROVIDERS: PCP Internal Medicine; Visit Provider Internal Medicine
DX: F17.200 Nicotine dependence, unspecified, uncomplicated (principal); J44.9 Chronic obstructive pulmonary disease, unspecified; G47.33 Obstructive sleep apnea (adult) (pediatric); G47.34 Idiopathic sleep related nonobstructive alveolar hypoventilation
CPT/HCPCS: 99213

== ENCOUNTER → 2024-11-22 13:32 | Outpatient (BNVA) | payer MEDICARE, SELFPAY | PROVIDERS: PCP Internal Medicine; Visit Provider Internal Medicine | DX: J44.9 Chronic obstructive pulmonary disease, unspecified (principal); G47.33 Obstructive sleep apnea (adult) (pediatric); G47.34 Idiopathic sleep related nonobstructive alveolar hypoventilation; F17.210 Nicotine dependence, cigarettes, uncomplicated; Z99.81 Dependence on supplemental oxygen | CPT/HCPCS: 99212 ==

== ENCOUNTER 2024-12-01 08:37 | Outpatient (REF) | payer MEDICARE, SELFPAY ==
--- OUTSIDE RECORDS SUMMARY | 2024-12-01 08:40 | XMS_ITS | Clinical Summary ---
Author Organization [facility] Address [address] [address] Phone Care Team Providers Care Machine Shop Repair Technician Name Role Phone Pcp, Unknown Primary Care Provider Jacques Pryor MD Unavailable [phone] Allergies No known active allergies Medications albuterol [...] EDT) SODIUM 136 133 - 146 mmol/L [facility] POTASSIUM 4.3 3.3 - 5.1 mmol/L [facility] CHLORIDE 102 96 - 108 mmol/L [facility] CO2 22 21 - 35 mmol/L [facility] BUN 15 6 - 19 mg/dL [facility] CREATININE 1.00 0.5 - 1.5 mg/dL [facility] GLUCOSE 104(H) 70 - 99 mg/dL [facility] ALBUMIN 4.4 3.9 - 4.8 g/dL [facility] TOTAL PROTEIN 7.4 6.5 - 8.0 g/dL [facility] CALCIUM 9.7 8.4 - 10.3 mg/dL [facility] ALKALINE PHOSPHATASE 93 39 - 117 U/L [facility] TOTAL BILIRUBIN 0.4 0.0 - 1.2 mg/dL [facility] AST 20 0 - 37 U/L [facility] ALT 17 0 - 40 U/L [facility] GLOBULIN 3.0 1 - 4.8 g/dL [facility] EGFR 60 >59 mL/min/1.7 3m2 [facility] Comment:Estimated glomerular filtration rate calculated using the CKD-EPI equation. ANION GAP 16 10 - 20 mmol/L [facility] Blood 12/24/2019 8:53 AM EDT 12/24/2019 8:58 AM EDT Marlene Newman CAREER TECHNICAL EDUCATION TEACHER LAB BLOOD ORDERABLES Final Result Performing Organization Address City/State/[facility] Co de Phone Number [facility] [address] [place] [address] from Last 3 Months or Most Recently Relevant to Health Maintenance Insurance MEDICARE PART A & B MEDICARE PART A & B HEALTH MEDICARE PART A & B HEALTH MEDICARE PART A & [place] MEDICARE PART A & B MEDICARE PART A & B MEDICARE PART A & B [facility] MEDICARE PART A & B [facility] MEDICARE PART A & B [facility] Care Teams Machine Shop Repair Technician Relationship Specialty Start Date End Date Pcp, Unknown PCP - General 03/08/22 Jacques Merritt MD [address] [place] [address] 03/08/22 Additional Source Comments The information contained in this document represents components of the legal health record. It is not the complete legal health record.[facility]
--- OUTSIDE RECORDS SUMMARY | 2024-12-01 08:40 | XMS_ITS | Clinical Summary ---
Author Organization [employer] Address [address] [place] [address] [address] [place] [address] Care Team Providers Care Epidemiologist Name Role Phone Unavailable Primary Care Provider [...] Description 11/21/2024 10:00 AM EDT Office Visit [facility] [address] [place] [phone] Osiris Espino from Last 3 Months Social [...] Description 05/22/2025 10:00 AM EDT Office Visit [facility] [address] [place] [address] Osiris Espino [address] [place] [address] Health Maintenance Due Date Last [...] HSN FULL (MEDICAID) DENTAL [place]
--- OUTSIDE RECORDS SUMMARY | 2024-12-01 08:40 | XMS_ITS | Clinical Summary ---
Author Organization [facility] avolution Address [address] [place], [place] [address] Phone Care Team Providers Care Cylinder Inspector And Tester Name Role Phone Jacques Diaz MD Primary Care Provider [phone] Allergies No known active allergies Medications albuterol sulfate (ProAir RespiClick) 90 mcg/actuation aerosol powdr breath activated Inhale into the lungs. Active biotin 10,000 mcg tablet,chewable Take by mouth. Active cyanocobalamin (VITAMIN B-12) 1,000 mcg tablet Take by mouth. Active cyclobenzaprine (FLEXERIL) 5 mg tablet Take 1 Tablet by mouth 3 times daily as needed. Active folic acid (FOLVITE) 1 mg tablet Take 1 Tablet by mouth daily. Active LIDOCAINE-PRILO SVETLANA TOP Apply topically. Active LORazepam (ATIVAN) 0.5 mg tablet Take 1 Tablet by mouth every 6 hours as needed. Active magnesium aspart,citrate, oxide (Triple Magnesium Complex) 400 mg magnesium capsule Take by mouth. Active omeprazole (PriLOSEC) [address] capsule Take 1 Capsule by mouth daily. Active traMADoL (ULTRAM) 50 mg tablet Take 1 Tablet by mouth every 6 hours as needed. Active valsartan (DIOVAN) 320 mg tablet Take 1 Tablet by mouth daily. Active fexofenadine (ALEXI) 180 mg tablet Take 1 tablet (180 mg total) by mouth 1 (one) time each day. Active aspirin 81 mg EC tablet Take 1 tablet (81 mg total) by mouth 1 (one) time each day. Active metoprolol succinate (TOPROL-XL) 25 mg 24 hr tablet Take 1 tablet (25 mg total) by mouth 2 (two) times a day. Do not crush or chew. Active fluticasone furoate (Arnuity Ellipta) 200 mcg/actuation blister with device inhaler Inhale 1 puff by mouth 1 (one) time each day. Active ascorbic acid (VITAMIN C) 500 mg CR capsule Take 1 capsule (500 mg total) by mouth 1 (one) time each day. Active B complex-vitamin C-folic acid (CALVIN-AMIRA) 1-60-300 mg-mg-mcg tablet Take 1 tablet by mouth 1 (one) time each day with breakfast. Active ezetimibe (ZETIA) 10 mg tablet Take 1 tablet (10 mg total) by mouth 1 (one) time each day. 90 each 1 03/20/2024 Active Active Problems Problem Noted Date Diagnosed Date Mixed hyperlipidemia 03/20/2024 Assessment & Plan (03/20/2024 8:58 AM EST): During her hospitalization, the patient was found to have elevated cholesterol levels. She was started on atorvastatin on discharge. On today's visit, she reports she stopped taking the atorvastatin due to myalgias and significant joint pain. 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 We discussed the possibility of starting her on a different statin, however the patient is adamant she does not want to be on a statin at this time. We reviewed side effects. We discussed alternatives including ezetimibe 10 mg orally daily. At this point, she will proceed with ezetimibe to help reduce her cholesterol levels. She will continue to work on heart healthy diet and lifestyle to reduce her levels. Primary hypertension 03/20/2024 Assessment & Plan (03/20/2024 8:58 AM EST): Patient's blood pressure is well-controlled today. She will continue her current antihypertensive medication regimen as prescribed. Tachycardia 03/20/2024 Assessment & Plan (03/20/2024 8:58 AM EST): The patient recently presented to the hospital due to palpitations. Telemetry monitoring did not show any clear documented arrhythmias and showed instances of sinus tachycardia. She is currently wearing 30-day ambulatory quality assurance monitor for further evaluation. I have encouraged her to document when she is feeling symptomatic so we can correlate it with her EKGs. She has seen improvement in her symptoms since being on metoprolol. At this point, we will continue her current therapy and will notify her of the results of her ROCT. She does bring up concerns for POTS syndrome and we discussed that we should proceed with a cardiac MRI and final results of the ambulatory quality assurance monitor and depending on the results we can proceed in that direction. Recommend she maintain adequate hydration and reduce her caffeine levels as well. Orders: ECG 12 lead Hypertrophic cardiomyopathy (CMS/HCC V24, CMS/HC C V28) 03/09/2024 Assessment & Plan (03/20/2024 8:58 AM EST): The patient underwent an echocardiogram during her recent hospitalization which showed mild concentric LVH and moderate apical hypertrophy with normal LV function. We discussed these results in depth today. We discussed that it would be important to further evaluate this hypertrophy with a cardiac MRI. She is under financial stress regarding her insurance and recent hospitalization, however at the end of the discussion, she agrees to undergo further testing. She continues on metoprolol. She has not had any episodes of syncope. At this point, we will continue with cardiac MRI and depending on the results will depend on next steps. Orders: ECG 12 lead MR Cardiac Morphology and Function wo and w Contrast; Future Resolved Problems Problem Noted Date Diagnosed Date Resolved Date Other restrictive cardiomyop athy (CMS/HCC V24, CMS/HCC V28) 03/20/2024 03/20/2024 Acute chest pain 03/09/2024 03/20/2024 Solitary pulmonary nodule 03/09/2024 Intermittent palpitations 03/09/2024 Medical History Medical History Date Comments Hyperlipidemia History of COPD Subclinical hypothyroidism Chronic pain Social History Tobacco Use Types Packs/Day Years Used Date Smoking Tobacco: Every Day Cigarettes Smokeless Tobacco: Never Tobacco Cessation:Ready to Q uit: Not Asked Alcohol Use Standard Drinks/Week Comments Never 0 (1 standard drink = 0.6 oz pur e alcohol) Comments Unknown Sex and Gender Information Value Date Recorded Sex Assigned at Not on file Legal Sex Female 10:13 AM EST Gender Identity Not on file Sexual Orientation Not on file Obstetrics History Last Filed Vital Signs Vital Sign Reading Time Taken Comments Blood Pressure 122/70 03/20/2024 8:04 AM EST Pulse 81 03/20/2024 8:04 AM EST Temperature - - Respiratory Rate - - Oxygen Saturation 96% 03/20/2024 8:04 AM EST Inhaled Oxygen Concentration - - Weight 79.7 kg (175 lb 12.8 oz) 03/20/2024 8:04 AM EST Height 172.7 cm (5' 8 ) 03/20/2024 8:04 AM EST Body Mass Index 26.73 03/20/2024 8:04 AM EST Plan of Treatment Health Maintenance Due Date Last Done Comments Breast Cancer Screening 1955 DTaP,Tdap,and Td Vaccines (1 - Tdap) 12/13/1975 Zoster Vaccines (1 of 2) 2006 Cholesterol Screening (Lipid Panel) 04/12/2023 Colorectal Cancer Screening: Colonoscopy 04/12/2023 Falls Risk Assessment 04/12/2023 Hepatitis C Screening 04/12/2023 Medicare Annual Wellness Visit 04/12/2023 Osteoporosis Screening (Bone Density Screening) 04/12/2023 Social Influencers of Health Screening 04/12/2023 Depression Screening 03/14/2024 Hypertension/CHF/CAD Annual BMP Blood Test 03/20/2024 12/24/2019, 12/24/2019 COVID-19 Vaccine ( season) 2024 03/03/2023, 11/23/2021, 01/23/2021, Additional history exists Influenza Vaccine (#1) 2024 , 02/20/2023, 12/17/2021, Additional history exists RSV Immunization Adult Patients (1 - 1-dose 75+ series) 12/13/2031 Pneumococcal Vaccine: 50+ Years Completed 01/11/2024, 12/25/2011 [...] on patient's age to complete this topic MMR Vaccines Aged Out No longer eligi ble based on patient's age to complete this topic Meningococcal ACWY Vaccine Aged Out N o longer eligible based on patient's age to complete this topic Meningococcal B Vaccine Aged Out No l onger eligible based on patient's age to complete this topic RSV Immunization Patients Under 20 months Aged Out No longer eligible based on patient's age to complete this topic Varicella Vaccines Aged Out No longer eligible based on patient's age to complete this topic Procedures Procedure Name Priority Date/Time Associated Diagnosis Comments ANNUAL BMP BLOOD TEST Routine 12/24/2019 from Last 3 Months or Most Recently Relevant to Health Maintenance Results * Annual BMP Blood Test (12/24/2019) Annual BMP Blood Test Abstracted Historical Provider MD HEALTH MAINTENANCE Final Result from Last 3 Months or Most Recently Relevant to Health Maintenance Insurance [employer] - [place] [employer]ARE [employer]AGE Care Teams Cylinder Inspector And Tester Relationship Specialty Start Date End Date Jacques Diaz MD [address] [place] [address] PCP - General Internal Medicine 02/15/24
--- OUTSIDE RECORDS SUMMARY | 2024-12-01 08:40 | XMS_ITS | Encounter Summary ---
Author Organization [employer] Address [address] [place] [address] [address] [place] [address] Care Team Providers Care K9 Handler Name Role Phone Unavailable Primary Care Provider Unavailabl e Encounter Details Date Type Department Care Team (Latest Contact Info) Description 07/14/2021 Abstract [facility] CONVERSIONS Dental, Provider, DDS Social History Tobacco [...] Description 05/22/2025 10:00 AM EDT Office Visit [facility] [address], [place] [phone] Osiris Espino [address] [place], [place] [phone] documented as of this encounter Visit Diagnoses Not on filedocumented in this encounter
--- OUTSIDE RECORDS SUMMARY | 2024-12-01 08:40 | XMS_ITS | Encounter Summary ---
Author Organization [employer] Address [address] [place] [address] [address] [address] Care Team Providers Care Pattern Changer And Repairer Name Role Phone Unavailable Primary Care Provider Unavailabl e Reason for Visit * Reason Onset Date Comments medication 09/27/2023 Encounter Details Date Type Department Care Team (Late st Contact Info) Description 09/27/2023 Telephone [facility] [address] [place] [address] [phone] Karyn Hernandez BDS [address] [place] [address] [phone] medication Social History Tobacco Use Types Packs/Day [...] encounter Miscellaneous Notes * Telephone Encounter - Junaa Willams - 09/27/2023 8:56 AM EDT Message for Dr. Payne Patient states antibiotic was to be sent to pharmacy but nothing there. DR documented in this encounter Plan of Treatment Upcoming Encounters Date Type Department Care Team (Late st Contact Info) Description 05/22/2025 10:00 AM EDT Office Visit [facility] [address] [place] [address] [phone] Osiris Espino [address] [place] [phone] documented as of this encounter Visit Diagnoses Not on filedocumented in this encounter
== END 2024-12-01 08:38 | disposition home or self-care (01) ==
LOC: HO.MAMMO 08:37
PROVIDERS: PCP Internal Medicine; Visit Provider Internal Medicine
DX: Z12.31 Encounter for screening mammogram for malignant neoplasm of breast (principal)
CPT/HCPCS: 77063; 77067

== ENCOUNTER → 2024-12-01 08:45 | Outpatient (BNV) | payer MEDICARE, SELFPAY | PROVIDERS: PCP Internal Medicine; Visit Provider Internal Medicine | DX: Z12.31 Encounter for screening mammogram for malignant neoplasm of breast (principal) | CPT/HCPCS: 77063; 77067 ==